=== PATIENT | female | born 1965 | race Two or more races ===

== ENCOUNTER 2019-02-12 11:52 | Outpatient (CLI) | payer OTHER | END 2019-02-12 11:53 | disposition home or self-care (01) | LOC: SONOGRAMA 11:52 | DX: N84.0 Polyp of corpus uteri (principal) ==

== ENCOUNTER 2025-08-10 07:00 | Outpatient (CLI) | payer OTHER ==
[2025-08-10] MEDS ORDERED: EZALLOR SPRINKLE5 MG PO (11:37)
[2025-08-10] MEDS ORDERED: TOPROL XL50 M1 PO (11:37)
[2025-08-10] MEDS ORDERED: MICARDIS40 MG PO (11:38)
[2025-08-10 13:17] LABS: RH POSITIVE
[2025-08-10 17:12] LABS: INR 1.08
[2025-08-10 18:55] LABS: COL ADP 176.0 SECONDS (56-102); COL EPI 204.0 SECONDS (82-175)
== END 2025-08-10 07:15 | disposition home or self-care (01) ==
LOC: LAB 07:00 → ADM 09:45 → CIR.AMB 08-12 07:00 → EDSTATUS 08-12 09:45
PROVIDERS: ATTEND Obstetrics & Gynecology Gynecology
DX: N83.209 Unspecified ovarian cyst, unspecified side (principal)

== ENCOUNTER 2025-09-15 08:57 | Outpatient (CLI) | payer OTHER ==
[~2025-09-15 08:57] MED LIST: EZALLOR SPRINKLE5 MG PO; MICARDIS40 MG PO; TOPROL XL50 M1 PO
[2025-09-15 10:06] LABS: BASO % 0.6 % (0.1-1.2); EOS # 0.21 (0.04-0.54); EOS % 3.1 % (0.7-7.0); LYMPH # 1.79 (1.18-3.74); LYMPH % 26.5 % (19.3-53.1); MEAN PLATELET VOLUME 9.80 fl (9.4-12.4); MONO # 0.51 (0.24-0.82); MONO % 7.6 % (4.7-12.5); NEUT # 4.19 (1.56-6.13); NEUT % 62.1 % (34.0-71.1); RED CELL DISTRIBUTION WIDTH 12.8 % (11.6-14.4)
[2025-09-15 10:24] LABS: COL EPI 161 SECONDS (82-175)
[2025-09-15 10:36] LABS: INR 1.07
[2025-09-15 10:54] LABS: ALT/SGPT 52.0 U/L (12-78); AST/SGOT 26.0 U/L (15-37); BILIRUBIN TOTAL 0.58 mg/dL (0.3-1.2); BUN CREA RATIO 20.0 (7.0-25.0); CREATININE SERUM 0.6 mg/dL (0.55-1.02); FE 118.0 ug/dl (50-170); GFR 102.32; GLOBULINA 3.1 G/DL (2.4-3.5); GLUCOSE FASTING 92.0 mg/dL (65-100); LDH 198.0 U/L (84-246); OSMOLALITY SERUM 284.0 MOSM/KG (275-295)
[2025-09-15 11:47] LABS: FOLIC ACID 5.21 ng/ml (4.78-20)
== END 2025-09-15 09:02 | disposition home or self-care (01) ==
LOC: LAB 08:57
PROVIDERS: ATTEND Internal Medicine Hematology & Oncology
DX: D68.8 Other specified coagulation defects (principal); E78.2 Mixed hyperlipidemia; I10 Essential (primary) hypertension; D50.8 Other iron deficiency anemias; R74.02 Elevation of levels of lactic acid dehydrogenase [LDH]; K76.89 Other specified diseases of liver